=== PATIENT | male | born 1975 | race Caucasian/White ===

== ENCOUNTER 2017-01-19 00:24 | Emergency (ER) | payer OTHER, SELFPAY ==
[2017-01-19] MEDS ORDERED: Acetaminophen 500 MG TAB ONE (00:45)
--- NOTE | 2017-01-19 08:53 | RAD ---
2 VIEWS CHEST: Date: 01/19/17 PROVIDED CLINICAL HISTORY: Cough. FINDINGS: Comparison with 08/20/11. Cardiac and mediastinal silhouette is within normal limits. No focal consolidation, pleural fluid, o r pneumothorax apparent. IMPRESSION: No evidence for an acute cardiopulmonary process. POS: [facility]
== END 2017-01-19 01:06 | disposition home or self-care (01) ==
LOC: NAV ERS 00:24
DX: J20.9 Acute bronchitis, unspecified (principal); B34.9 Viral infection, unspecified
CPT/HCPCS: 71020

== ENCOUNTER 2017-03-08 22:57 | Emergency (ER) | payer OTHER ==
[2017-03-08] MEDS ORDERED: Sodium Chloride 0.9% 500 ML ONE (23:49)
--- NOTE | 2017-03-08 23:51 | CT ---
CT BRAIN WITHOUT CONTRAST: Technique: Multiple axial tomograms were obtained through the head without IV enhancement. History: Fell and hit back of head. FINDINGS: Ventricles have normal size and position. There is no evidence of hemorrhage or contusion. IMPRESSION: No acute abnormality identified. POS: [facility]
--- NOTE | 2017-03-08 23:52 | CT ---
CT CERVICAL SPINE: Technique: Multiple axial tomograms were obtained through the cervical spine with multiplanar recons truction. History: Fell with injury to head and neck. FINDINGS: Anterior osteophytes noted at C5-6 and C6-7. Cervical vertebra maintain height and alignment. There is no evidence of acute fracture. IMPRESSION: No evidence of fracture. POS: [facility]
--- NOTE | 2017-03-08 23:53 | RAD ---
PORTABLE CHEST: History: Fall. Injury to head and neck. FINDINGS: Lungs are clear. Heart and mediastinum appear unremarkable. The bony thorax appears intact. IMPRESSION: No acute abnormality identified. POS: [facility]
[2017-03-09] LABS: #Basophils 0.1 thou/uL (0.0-0.2); #Lymphocytes 2.3 thou/uL (1.20-3.40); #Monocytes 0.6 thou/uL (0.11-0.59); #Neutrophils 5.7 thou/uL (1.40-6.50); %Basophils 0.8 % (0.0-1.0); %Eosinophils 0.3 % (0.0-10.0); %Lymphocytes 26.4 % (21.0-51.0); %Monocytes 6.8 % (0.0-10.0); %Neutrophils 65.7 % (42.0-75.0); Hemoglobin 14.2 g/dL (14.0-18.0); Mean Corpuscular Hemoglobin 32.3 pg (27.0-31.0); Mean Corpuscular Volume 94.8 fl (80.0-94.0); Mean Platelet Volume 6.3 fL (7.4-10.4); Platelet Count 263 thou/uL (130-400); RBC Distribution Width 11.6 % (11.5-14.5); Red Blood Cell (RBC) Count 4.41 mill/uL (4.70-6.10); White Blood Cell (WBC) Count 8.7 thou/uL (4.8-10.8)
[2017-03-09 00:15] LABS: INR-International Normal Ratio 0.9; Prothrombin Time 12.4 SEC (12.0-14.7)
[2017-03-09 00:22] LABS: ALT (SGPT) 57 U/L (0-55); AST (SGOT) 63 U/L (5-34); Albumin 5.1 g/dL (3.5-5.0); Alkaline Phosphatase 75 U/L (40-150); Anion Gap 19 mmol/L (10-20); BUN (Urea Nitrogen) 6 mg/dL (8.9-20.6); Bilirubin, Total 0.5 mg/dL (0.2-1.2); Calc. Creatinine Clearance 0 mL/min (70-130); Calcium 9.6 mg/dL (7.8-10.44); Carbon Dioxide 22 mmol/L (22-29); Chloride 100 mmol/L (98-107); Estimated GFR-MDRD Greater than 90; Glucose 91 mg/dL (70-105); Protein, Total 7.9 g/dL (6.0-8.3); Sodium 137 mmol/L (136-145)
[2017-03-09 00:26] LABS: Globulin 2.8 g/dL (2.4-3.5)
[2017-03-09] MEDS ORDERED: Sodium Chloride 0.9% 1,000 ML ONE (00:42)
== END 2017-03-09 04:02 | disposition home or self-care (01) ==
LOC: NAV ERS 22:57
DX: S00.03XA Contusion of scalp, initial encounter (principal); F10.129 Alcohol abuse with intoxication, unspecified; F17.210 Nicotine dependence, cigarettes, uncomplicated; W01.198A Fall on same level from slipping, tripping and stumbling with subsequent striking against other object, initial encounter
CPT/HCPCS: 70450; 71010; 72125; 80053; 80307; 85025; 85610; 96360; J7050

== ENCOUNTER 2018-12-08 17:16 | Emergency (ER) | payer OTHER ==
[2018-12-08] MEDS ORDERED: Azithromycin 250 MG TAB ONE (17:48)
[2018-12-08] MEDS ORDERED: predniSONE 20 MG TAB ONE (17:48)
== END 2018-12-08 17:55 | disposition home or self-care (01) ==
LOC: NAV ERS 17:16
DX: J06.9 Acute upper respiratory infection, unspecified (principal); F17.210 Nicotine dependence, cigarettes, uncomplicated
CPT/HCPCS: 99283; J7506

== ENCOUNTER 2020-07-01 17:13 | Emergency (ER) | payer OTHER ==
[2020-07-01] MEDS ORDERED: Ventolin HFA Inhaler 60 PUFF INHALER ONE (17:37)
[2020-07-01] MEDS ORDERED: methylPREDNISolone Sod Succ/PF 125 MG/2 ML VIAL ONE (17:37)
[2020-07-01] MEDS ORDERED: Ibuprofen 800 MG TAB ONE (17:38)
--- NOTE | 2020-07-01 18:47 | RAD ---
EXAM: Two views chest PROVIDED CLINICAL HISTORY: Cough and fever. COMPARISON: 01/19/2017 FINDINGS: Cardiac silhouette and pulmonary vasculature are within normal limits. Biapical pleural thickening is present. Lateral costophrenic angles are excluded from view. Lungs are hyperexpanded and otherwise clear. The osseous structures have a normal appearance. IMPRESSION: No acute cardiopulmonary process.
[2020-07-03 15:15] LABS: SARS-CoV-2 MS2 Positive; SARS-CoV-2 N Gene Negative; SARS-CoV-2 S Gene Negative; SARS-CoV-2 by NAA Not Detected (NotDetected); SARS-CoV-2 orf1ab Negative
== END 2020-07-01 18:40 | disposition home or self-care (01) ==
LOC: NAV ERS 17:13
DX: R05 Cough (principal); R50.9 Fever, unspecified; R06.2 Wheezing; F17.210 Nicotine dependence, cigarettes, uncomplicated; Z20.828 Contact with and (suspected) exposure to other viral communicable diseases
CPT/HCPCS: 71046; 87635; 96372; J2930; U0003

== ENCOUNTER 2021-11-14 14:51 | Emergency (ER) | payer OTHER | END 2021-11-14 15:57 | disposition home or self-care (01) | LOC: NAV ERS 14:51 | DX: M77.12 Lateral epicondylitis, left elbow (principal); F17.210 Nicotine dependence, cigarettes, uncomplicated ==

== ENCOUNTER 2023-04-05 17:31 | Emergency (ER) | payer BC, OTHER, SELFPAY ==
[2023-04-05] MEDS ORDERED: Acetaminophen 500 MG TAB ONE (18:28)
[2023-04-05] MEDS ORDERED: Ondansetron ODT 4 MG TAB ONE (18:49)
[2023-04-05] MEDS ORDERED: methylPREDNISolone Acetate 40 mg/ml Vial ONE (19:35)
== END 2023-04-05 19:43 | disposition home or self-care (01) ==
LOC: NAV ERS 17:31
DX: J06.9 Acute upper respiratory infection, unspecified (principal); F17.210 Nicotine dependence, cigarettes, uncomplicated; Z20.822 Contact with and (suspected) exposure to COVID-19
CPT/HCPCS: 87081; 87430; 87635; 87804; 96372; 99283; J1030; Q0162

== ENCOUNTER 2024-01-12 12:09 | Emergency (ER) | payer BC ==
[2024-01-12 12:35] LABS: Bilirubin Negative (Negative); Blood, Urine Negative (Negative); Clarity Clear (Clear); Glucose, Urine (Dipstick) Negative (Negative); Ketone, Urine Negative (Negative); Leukocyte Negative (Negative); Nitrite Negative (Negative); Protein, Urine (Dipstick) Negative (Neg-Trace); Specific Gravity, Urine 1.025 (1.005-1.030); pH, Urine 7.5 (5.0-9.0)
[2024-01-12] MEDS ORDERED: Ibuprofen 200 MG TAB ONE (12:39)
[2024-01-12 12:55] LABS: Bacteria/HPF None Seen HPF (None Seen); CAUTI Indications for Culture Pelvic or flank pain; RBC/HPF None Seen HPF (0-3); Squamous Epithelial 0-3 HPF (0-3); Urine Culture Reflex No No; WBC/HPF None Seen HPF (0-3)
== END 2024-01-12 13:43 | disposition home or self-care (01) ==
LOC: NAV ERS 12:09
DX: S20.212A Contusion of left front wall of thorax, initial encounter (principal); F17.210 Nicotine dependence, cigarettes, uncomplicated; W19.XXXA Unspecified fall, initial encounter
CPT/HCPCS: 81001

== ENCOUNTER 2025-09-04 09:46 | Emergency (ER) | payer BC | END 2025-09-04 11:15 | disposition home or self-care (01) | LOC: NAV ERS 09:46 | DX: B34.9 Viral infection, unspecified (principal); F17.210 Nicotine dependence, cigarettes, uncomplicated | CPT/HCPCS: 87428; 96372; 99283; J1885 ==